=== PATIENT | male | born 2005 | race Caucasian/White ===

== ENCOUNTER 2024-06-07 20:34 | Emergency (ER) | payer BC, SELFPAY ==
[2024-06-07 20:44] VITALS: BP 152/100
[2024-06-07] MEDS: ADACEL 0.5 ML IM (22:01)
[2024-06-07 22:39] VITALS: BP 169/98
--- NOTE | 2024-06-07 23:30 | ED.GENMED ---
History of Present Illness
General
Chief Complaint: Skin Surface Trauma
Source: patient and family (Mother)
Exam Limitations: none
Time Seen by Provider: 06/07/24 21:44
Nursing documentation reviewed up to this point in time: agreed with
History of Present Illness
History of Present Illness:
18-year-old male presents with right thumb laceration. Was using his knife and accidentally cut himself on the thumb. No other injuries or complaints. Unsure of last tetanus.
Review of Systems
Review of Systems
All Other Systems: ROS reviewed and negative except as documented in HPI and ROS
Skin: Reports other (Thumb laceration)
Phy Exam
Physical Exam
Physical Exam:
General: Well appearing and non-toxic
HEENT: protecting airway
Neck: appears supple
CV: No evidence of cyanosis
Resp: No accessory muscle use
Abd: Non-distended
Extremities: No deformities
Neuro: Alert
Psych: Normal affect
Skin: Vertical linear laceration approximately 2 cm right thumb on the pad�superficial, no foreign body, no exposed tendon
Scores
Heart Failure Risk
Heart Failure Risk Score: Not Applicable
Heart Score for Chest Pain Patients
STEMI patient?: Not applicable
Withdrawal Assessment of Alcohol
Withdrawal Assessment Completed?: Not applicable
Course
Orders/Labs/Results
Orders:
Orders
06/07/24 21:47
Tetanus/Diphth/Acelpertussis [Adacel] 0.5 ml IM .ONCE ONE
Vital Signs
Initial and Last Documented VS:
Initial Vital Signs
Temp Pulse Resp BP Pulse Ox
37.0 C 85 20 152/100 97
06/07/24 20:44 06/07/24 20:44 06/07/24 20:44 06/07/24 20:44 06/07/24 20:44
Last Documented Vital Signs
Temp Pulse Resp BP Pulse Ox
37.0 C 85 18 169/98 95
06/07/24 20:44 06/07/24 22:39 06/07/24 22:39 06/07/24 22:39 06/07/24 22:39
Procedures
Laceration Closure
Right Thumb:
Status of Wound: clean
Size of Wound in cm: 2
Description of Wound Edges: sharp
Preparation: cleaned with saline
Anesthesia: 1% Lidocaine
Revision/Debridement: routine- no revision
Type of Closure: single layer closure
Skin Closure Material: 4-0 nylon
Number of sutures: 3
MDM/Problems Addressed
Differential Diagnosis Includes:
Thumb laceration
MDM/Problems Addressed:
18-year-old male with thumb laceration from knife. Relatively superficial, no foreign body, no exposed tendon. Tetanus updated. Irrigated vigorously and cleaned with saline and peroxide. Repaired as documented procedure note. Clean dressing
applied. Discharged with plan to follow-up in a week for suture removal. Discussed return precautions including signs of infection. All questions answered.
*Pulse Oximetry
Patient hypoxic: no
*Critical Care Note
Total Time (30-74mins, 75-104mins- exclusive of procedures): Not Applicable
Data Reviewed
Source: patient and family (Mother)
ED Attending Note
-
Portions of this chart may have been created with voice recognition software.� Occasional wrong word or��sound alike� substitutions may have occurred due to the inherent limitations of voice recognition software.
Discharge Plan
Departure
Patient Disposition: Home (Routine Discharge)
Date of Disposition: 06/07/24
Time of Disposition: 22:33
Patient with high blood pressure during this ER visit?: Yes
Discharge Problem:
Laceration of thumb
Instructions: Laceration Repair With Stitches (DC)
Referrals:
UNKNOWN - PT DOES,NOT KNOW [Family Provider] -
Activity Restrictions/Additional Instructions:
Your stitches must be removed in 1 week. You can follow-up with your primary doctor, go to urgent care, or return here for suture removal. If you notice any signs of infection please return immediately to the ER.
Interventions
Interventions:
*Risk Screen - Suicide Last Done: 06/07/24 20:44
*General Assessment Last Done: 06/07/24 20:44
*Neglect/Abuse Screening Last Done: 06/07/24 20:44
ED- Fall Risk Assessment Last Done: 06/07/24 20:44
*ED COVID-19 Vaccine History Last Done: 06/07/24 20:44
*Nursing Disposition Last Done: 06/07/24 22:39
ED-Skin Assessment Last Done: 06/07/24 21:07
Discharge Date and Time
Discharge Date/Time: 06/07/24 22:39
Print Language: BOLIVIAN
== END 2024-06-07 22:39 | disposition home or self-care (01) ==
LOC: EMR 20:34
PROVIDERS: EMERGENCY PHYSICIAN Emergency Medicine
DX: S61.011A Laceration without foreign body of right thumb without damage to nail, initial encounter (principal); W26.0XXA Contact with knife, initial encounter; Z23 Encounter for immunization
CPT/HCPCS: 99282; 90471; 90715